=== PATIENT | male | born 1945 | race Caucasian/White ===

== ENCOUNTER → 2023-07-02 10:59 | Outpatient (REF) | payer OTHER, SELFPAY | LOC: RAD 10:59 | PROVIDERS: ATTENDING PHYSICIAN Orthopaedic Surgery; FAMILY PHYSICIAN Family Medicine | DX: M51.36 Other intervertebral disc degeneration, lumbar region (principal) | CPT/HCPCS: 72110 ==

== ENCOUNTER → 2023-07-05 12:03 | Outpatient (REF) | payer OTHER, SELFPAY | LOC: PAVMRI 12:03 | PROVIDERS: ATTENDING PHYSICIAN Orthopaedic Surgery; FAMILY PHYSICIAN Family Medicine | DX: M54.50 Low back pain, unspecified (principal); M43.16 Spondylolisthesis, lumbar region; Z98.1 Arthrodesis status | CPT/HCPCS: 70030; 72072; 72148 ==

== ENCOUNTER → 2024-08-27 10:26 | Outpatient (REF) | payer OTHER, SELFPAY | LOC: PAVMRI 10:26 | PROVIDERS: ATTENDING PHYSICIAN Physical Medicine & Rehabilitation; FAMILY PHYSICIAN Family Medicine | DX: M48.02 Spinal stenosis, cervical region (principal); M47.812 Spondylosis without myelopathy or radiculopathy, cervical region | CPT/HCPCS: 72141; 76014; 76015 ==

== ENCOUNTER → 2024-11-10 07:52 | Outpatient (REF) | payer OTHER, SELFPAY | LOC: RAD 07:52 | PROVIDERS: ATTENDING PHYSICIAN Podiatrist Foot & Ankle Surgery; FAMILY PHYSICIAN Family Medicine | DX: M84.374A Stress fracture, right foot, initial encounter for fracture (principal) | CPT/HCPCS: 78315; A9503 ==